=== PATIENT | female | born 1985 | race Caucasian/White ===

== ENCOUNTER 2019-09-26 10:17 | Emergency (ER) | payer OTHER, SELFPAY ==
--- NOTE | 2019-09-26 10:28 | ED.URI ---
HPI - URI/Sore Throat General Chief Complaint: Upper Respiratory Infection Stated Complaint: sore throat/fever History of Present Illness HPI Narrative: This is a 34-year-old female comes in complaining of body aches fever scratchy throat not feeling well states that symptoms started yesterday denies any nausea vomiting diarrhea no shortness of breath. Related Data Allergies Allergy/AdvReac Type Severity Reaction Status Date / Time No Known Allergies Allergy Unknown Unverified 11/22/16 17:15 Review of Systems Review of Systems: Narrative: CONSTITUTIONAL: Positive fever, chills, or sweats. EYES: Denies visual changes, redness, or discharge. ENT: positive rhinorrhea, congestion, sore throat, or otalgia. CARDIOVASCULAR:Denies chest pain, palpitations, or edema. RESPIRATORY: Positive cough or dyspnea. GASTROINTESTINAL: Denies abdominal pain, nausea, vomiting, or diarrhea. GENITOURINARY: Denies dysuria or hematuria. SKIN:Denies rash or itching. MUSCULOSKELETAL:Denies back pain, joint pain, or myalgia. NEUROLOGIC: Denies headache, numbness, or weakness. PSYCHIATRIC:Denies anxiety or depression PMFSH Comments At time as signature, I have reviewed and agree with nursing past medical, social, surgical and family history. Please see nursing chart for further information. There is no relevant family history pertinent to the presenting complaint. Exam Narrative: Exam Narrative: GENERAL:Well-appearing, well-nourished, and in no acute distress. HEAD:Normocephalic, atraumatic. EYES: PERRLA and EOMI. ENT: Nares clear, no rhinorrhea or epistaxis. Mucous membranes moist. NECK: Supple. CHEST: Clear to auscultation. No respiratory distress. HEART: Regular rate and rhythm. No murmur heard. Normal peripheral pulses. ABDOMEN: Soft, nontender, nondistended, normal active bowel sounds. EXTREMITIES: Normal range of motion. No edema. SKIN: Warm, dry, no rash. NEURO: No focal deficits. Alert and oriented x3. Positive for influenza b Discharge Plan Discharge Clinical Impression: Influenza Patient Disposition: Home, Self-Care Condition: Stable Instructions: Antibiotic Form, Influenza (ED) Prescriptions: New oseltamivir [Tamiflu] 75 mg capsule 75 mg PO Q12H 5 Days Qty: 10 RF: 0 ondansetron 4 mg tablet,disintegrating 4 mg PO Q8H PRN (Reason: nausea and vomiting) Qty: 10 RF: 0 Follow-up/Referrals: Juan F Mota MD [Primary Care Provider] - Stand Alone Forms: Work/School Release IP
[2019-09-26 10:35] VITALS: BP 110/86; PULSE 81; RESP 16; TEMP 37.3; O2SAT 97
--- NOTE | 2019-09-26 11:18 | ED.URI ---
HPI - URI/Sore Throat General Chief Complaint: Upper Respiratory Infection Stated Complaint: sore throat/fever History of Present Illness HPI Narrative: This is a 34-year-old female comes in complaining with a cough currently patient is on some Amoxil given to her by her PCP patient still is having cough worried about having influenza. Mild shortness of breath when she lies down and cough. Related Data Allergies Allergy/AdvReac Type Severity Reaction Status Date / Time No Known Allergies Allergy Unknown Unverified 11/22/16 17:15 Review of Systems Review of Systems: Narrative: CONSTITUTIONAL: Reports fever, chills, or sweats. EYES: Denies visual changes, redness, or discharge. ENT: Reports rhinorrhea, congestion, sore throat, or otalgia. CARDIOVASCULAR:Denies chest pain, palpitations, or edema. RESPIRATORY: Reports cough or dyspnea. GASTROINTESTINAL: Denies abdominal pain, nausea, vomiting, or diarrhea. GENITOURINARY: Denies dysuria or hematuria. SKIN:[Denies rash or itching. MUSCULOSKELETAL:Denies back pain, joint pain, or myalgia. NEUROLOGIC: Denies headache, numbness, or weakness. PSYCHIATRIC:Denies anxiety or depression PMFSH Comments Walk with at time as signature, I have reviewed and agree with nursing past medical, social, surgical and family history. Please see nursing chart for further information. There is no relevant family history pertinent to the presenting complaint. Exam Narrative: Exam Narrative: GENERAL:Well-appearing, well-nourished, and in no acute distress. HEAD:Normocephalic, atraumatic. EYES: PERRLA and EOMI. ENT: Nares clear, clear rhinorrhea or epistaxis. Mucous membranes moist. Pharyngeal erythema NECK: Supple. CHEST: Clear to auscultation. No respiratory distress. HEART: Regular rate and rhythm. No murmur heard. Normal peripheral pulses. ABDOMEN: Soft, nontender, nondistended, normal active bowel sounds. EXTREMITIES: Normal range of motion. No edema. SKIN: Warm, dry, no rash. NEURO: No focal deficits. Alert and oriented x3. Course Vital Signs Vital signs: Vital Signs Temperature 99.1 F 09/26/19 10:35 Pulse Rate 81 09/26/19 10:35 Respiratory Rate 16 09/26/19 10:35 Blood Pressure 110/86 09/26/19 10:35 Pulse Oximetry 97 03/05/20 10:35 Temperature 99.1 F 09/26/19 10:35 Pulse Rate 81 09/26/19 10:35 Respiratory Rate 16 09/26/19 10:35 Blood Pressure 110/86 09/26/19 10:35 Pulse Oximetry 97 09/26/19 10:35 MDM - URI/Sore Throat Lab Data Labs: Influenza A Screen Negative Reference Range: Negative Influenza B Screen Negative Reference Range: Negative Strep Screen Presumptive Negative *(Reference Range: Negative)* Discharge Plan Discharge Clinical Impression: Influenza Patient Disposition: Home, Self-Care Condition: Stable Instructions: Antibiotic Form, Influenza (ED) Prescriptions: New oseltamivir [Tamiflu] 75 mg capsule 75 mg PO Q12H 5 Days Qty: 10 RF: 0 ondansetron 4 mg tablet,disintegrating 4 mg PO Q8H PRN (Reason: nausea and vomiting) Qty: 10 RF: 0 Follow-up/Referrals: Juan F Mota MD [Primary Care Provider] - Stand Alone Forms: Work/School Release IP Discharge Date/Time: 09/26/19 11:32
== END 2019-09-26 11:32 | disposition home or self-care (01) ==
PROVIDERS: Emergency Provider Nurse Practitioner Family; PCP Emergency Medicine
DX: J11.1 Influenza due to unidentified influenza virus with other respiratory manifestations (principal)
CPT/HCPCS: 87081; 87804; 87880; 99213; G0463

== ENCOUNTER 2025-07-01 12:53 | Observation (INO) | payer OTHER, SELFPAY ==
--- NOTE | ~2025-07-01 | CT_ITS ---
EXAMINATION: CT abdomen pelvis w con DATE: 07/01/2025 16:55 INDICATION: Lower abdominal pain, nausea and constipation TECHNIQUE: Computed tomography (CT) of the abdomen and pelvis was performed with 100 mL Omnipaque-350 intravenous contrast. Automated exposure control and iterative reconstruction technique were employed. The dose-length product was 237.17 mGy-cm. COMPARISON: None FINDINGS: Lung bases are clear. Heart size is normal. No pericardial or pleural effusion. Focal hepatic steatosis along the ligamentum teres. Gallbladder, pancreas, bilateral adrenal glands and left kidney are normal. 1.1 cm right renal cyst. Splenic calcifications consistent with old granulomatous disease. Small amount of stool in the proximal colon. The mid to distal colon is relatively decompressed. High attenuation likely appendicoliths within the appendix which is fluid-filled and dilated distally measuring up to 12 mm in maximal diameter with periappendiceal inflammatory stranding consistent with acute appendicitis. Small bowel is normal caliber with no obstruction. Decompressed bladder and bilateral adnexa are unremarkable. T-shaped IUD in expected position within the anteverted uterus. No free intraperitoneal gas or fluid. No pathologically enlarged abdominal or pelvic lymphadenopathy. Mild lumbar levocurvature. IMPRESSION: 1. Acute appendicitis. Dr. Lamb discussed these findings with Dr. Garza at 5:07 PM. Reviewed, dictated and finalized at location B. [employer] IMPRESSION: 1. Acute appendicitis. Dr. Lamb discussed these findings with Dr. El rowan at 5:07 PM.
[2025-07-01 13:18] VITALS: BP 146/109; PULSE 77; RESP 16; TEMP 36.9; O2SAT 99
--- NOTE | 2025-07-01 14:52 | ED_ITS ---
HPI - Abdominal Pain General Chief Complaint: Abdominal Pain <MORAIMA Little Last Filed: 07/01/25 17:09> Stated Complaint: abdominal pain, Nausea <MORAIMA Little Last Filed: 07/01/25 17:09> Time Seen by Provider: 07/01/25 14:52 <MORAIMA Little Last Filed: 07/01/25 17:09> Focused HPI: Patient is a 40 y/o female who presents to the ED with c/o ABD pain. Patient reports having diffuse mid/lower abdomen pain, described as a cramping, consistently since last night. Reports nausea, dizziness, constipation. States her BMs have been very small. Last passed a small amount of stool this am. Denies fevers. Denies bad food exposure, sick contacts, family members with similar sx's. GENERAL: Uncomfortable-appearing, well-nourished, and in no acute distress. HEAD: Normocephalic, atraumatic. CHEST: Clear to auscultation. ?No respiratory distress. HEART: Regular rate and rhythm.? ABD: TTP in mid lower and LLQ abd. Normoactive BS NEURO: ?Alert and oriented x3. Patient screened in triage and initial orders placed.? ?Additional care and disposition to be based upon?diagnostic testing and treatment. <MORAIMA Little Last Filed: 07/01/25 17:09> Source: patient <MORAIMA Little Last Filed: 07/01/25 17:09> Mode of arrival: ambulatory <MORAIMA Little Last Filed: 07/01/25 17:09> Limitations: no limitations <MORAIMA Little Last Filed: 07/01/25 17:09> Related Data Allergies/Adverse Reactions: Allergies Allergy/AdvReac Type Severity Reaction Status Date / Time No Known Allergies Allergy Unknown Verified 07/01/25 15:59 <MORAIMA Little Last Filed: 07/01/25 17:09> Review of Systems 2 Review of Systems: All systems reviewed & are unremarkable except as noted in HPI and below <Gavin Ho MD - Last Filed: 07/01/25 17:35> Exam 2 Narrative: EXAMINATION OF ORGAN SYSTEMS/BODY AREAS: Constitutional: Vital signs per nursing GENERAL:No acute distress, non-toxic appearing. HEAD: Normal with no signs of head trauma. EYES: EOMI, conjunctiva normal ENT: Hearing grossly intact LUNGS: Nonlabored breathing. HEART: Regular rate and rhythm ABD: Soft, the abdomen is diffusely tender without any rebound or guarding. No overlying skin changes normal bowel sounds. EXT: Normal range of motion SKIN: No rashes or lesions. NEURO: Alert. No gross focal sensory or strength deficits. PSYCH: Normal affect <Gavin Ho MD - Last Filed: 07/01/25 17:35> Course Vital Signs Vital signs: Vital Signs Temperature 36.9 C 07/01/25 13:18 Pulse Rate 77 07/01/25 13:18 Respiratory Rate 16 07/01/25 13:18 Blood Pressure 146/109 H 07/01/25 13:18 Pulse Oximetry 99 07/01/25 13:18 Oxygen Delivery Room Air 07/01/25 13:18 Temperature 36.9 C 07/01/25 13:18 Pulse Rate 71 07/01/25 16:12 Respiratory Rate 18 07/01/25 16:12 Blood Pressure 138/98 H 07/01/25 16:12 Pulse Oximetry 99 07/01/25 16:12 Oxygen Delivery Room Air 07/01/25 13:18 <Shira Garza PA-C - Last Filed: 07/01/25 17:09> Vital Signs Temperature 36.9 C 07/01/25 13:18 Pulse Rate 77 07/01/25 13:18 Respiratory Rate 16 07/01/25 13:18 Blood Pressure 146/109 H 07/01/25 13:18 Pulse Oximetry 99 07/01/25 13:18 Oxygen Delivery Room Air 07/01/25 13:18 Temperature 36.9 C 07/01/25 13:18 Pulse Rate 71 07/01/25 16:12 Respiratory Rate 18 07/01/25 16:12 Blood Pressure 138/98 H 07/01/25 16:12 Pulse Oximetry 99 07/01/25 16:12 Oxygen Delivery Room Air 07/01/25 13:18 <Gavin Ho MD - Last Filed: 07/01/25 17:35> [facility] Narrative Medical decision making narrative: MSE by JUANITO in triage <Shira Garza PA-C - Last Filed: 07/01/25 17:09> Differential Diagnosis Differential Diagnosis: Differential diagnosis is diverticulitis versus early appendicitis versus colitis versus viral gastroenteritis versus less likely an obstructive process. Will obtain IV access basic labs CT abdomen pelvis IV contrast and multimodal pain control implant for evaluation of a recurrent treatment. Results and re-evaluation Patient found have acute appendicitis. I did spoke with Dr. Parker general surgery who will accept the admission. I have started the patient on empiric antibiotics made NPO p.r.n. pain medications updated the patient all questions answered otherwise admitted the hospital in fair condition. <Gavin Ho MD - Last Filed: 07/01/25 17:35> Lab Data [facility] Lab Attestation statement: I personally reviewed the patient's lab results. <Gavin Ho MD - Last Filed: 07/01/25 17:35> Result diagrams: 07/01/25 16:14 07/01/25 16:14 <Shira Garza PA-C - Last Filed: 07/01/25 17:09> Labs: Lab Results 07/01/25 07/01/25 07/01/25 Range/Units 16:14 16:24 16:26 WBC 15.1 H (4.5-10.0) K/mm3 RBC 4.76 (4.2-5.4) M/mm3 Hgb 15.0 (12.0-15.0) g/dL Hct 42.5 (37.0-47.0) % MCV 89.3 (80-100) fl MCH 31.5 (26-34) pg MCHC 35.3 (32-36) g/dl RDW 12.2 (11.5-14.5) % Plt Count 261 (150-375) k/mm3 MPV 9.5 (7.4-10.4) fl Immature Gran % (Auto) 0.3 (0-0.5) % Neut % (Auto) 85.3 H (45.5-73.1) % Lymph % (Auto) 9.9 L (18.3-44.2) % [place] % (Auto) 4.3 (2.6-8.5) % Eos % (Auto) 0.0 (0-4.4) % Baso % (Auto) 0.2 (0.2-1.2) % Lymph # (Auto) 1.49 (0.9-3.2) K/mm3 [place] # (Auto) 0.7 H (0.1-0.6) K/mm3 Eos # (Auto) 0.0 (0-0.3) K/mm3 Baso # (Auto) 0.0 (0.0-0.1) K/mm3 Abs Immat Gran (auto) 0.05 H (0.00-0.031) K/mm3 Absolute Neuts (auto) 12.9 H (1.3-6.7) K/mm3 Absolute Nucleated RBC 0.000 (0.0-0.012) K/mm3 Nucleated RBC % 0.0 (0.0-0.2) % Sodium 138 (137-145) mmol/L Potassium 3.5 (3.4-5.0) mmol/L Chloride 106 (98-107) mmol/L Carbon Dioxide 24 (22-30) mmol/L Anion Gap 8 (4-12) mmol/L BUN 8 (7-17) mg/dL Creatinine 0.70 (0.7-1.0) mg/dL Estim Creat Clear Calc 78 ml/min Estimated GFR > 60 (59 - ) Glucose 100 (65-110) mg/dL Calcium 9.5 (8.4-10.2) mg/dL Total Bilirubin 1.3 (0.2-1.3) mg/dL AST 25 (14-36) U/L ALT 12 (6-35) U/L Alkaline Phosphatase 93 (38-126) U/L Total Protein 7.7 (6.3-8.2) g/dL Albumin 4.5 (3.5-5.1) g/dL Lipase 73 (23-300) U/L Urine Color Yellow (Yellow) Urine Appearance Clear (Clear) Urine pH 6.0 (5.0-9.0) Ur Specific [place] 1.033 (1.001-1.035) Urine Protein 2+ H (Negative) mg/dL Urine Glucose (UA) Negative (Negative) mg/dL Urine Ketones 3+ H (Negative) mg/dL Ur Blood (Man) Negative (Negative) Urine Nitrate Negative (Negative) Urine Bilirubin Negative (Negative) Urine Urobilinogen 1.0 (<2.0) mg/dL Leukocyte Esterase Rfl Negative (Negative) KALYN/UL Urine RBC 0-2 (0-2) /hpf Urine WBC 0-5 (0-3) /hpf Ur Squamous Epith Cells Occasional (Few) /hpf Urine Bacteria 1+ H /hpf Urine Casts 0-2 POC Urine HCG, Qual Negative (Negative) <Shira Garza PA-C - Last Filed: 07/01/25 17:09> Lab Results 07/01/25 07/01/25 07/01/25 Range/Units 16:14 16:24 16:26 WBC 15.1 H (4.5-10.0) K/mm3 RBC 4.76 (4.2-5.4) M/mm3 Hgb 15.0 (12.0-15.0) g/dL Hct 42.5 (37.0-47.0) % MCV 89.3 (80-100) fl MCH 31.5 (26-34) pg MCHC 35.3 (32-36) g/dl RDW 12.2 (11.5-14.5) % Plt Count 261 (150-375) k/mm3 MPV 9.5 (7.4-10.4) fl Immature Gran % (Auto) 0.3 (0-0.5) % Neut % (Auto) 85.3 H (45.5-73.1) % Lymph % (Auto) 9.9 L (18.3-44.2) % [place] % (Auto) 4.3 (2.6-8.5) % Eos % (Auto) 0.0 (0-4.4) % Baso % (Auto) 0.2 (0.2-1.2) % Lymph # (Auto) 1.49 (0.9-3.2) K/mm3 [place] # (Auto) 0.7 H (0.1-0.6) K/mm3 Eos # (Auto) 0.0 (0-0.3) K/mm3 Baso # (Auto) 0.0 (0.0-0.1) K/mm3 Abs Immat Gran (auto) 0.05 H (0.00-0.031) K/mm3 Absolute Neuts (auto) 12.9 H (1.3-6.7) K/mm3 Absolute Nucleated RBC 0.000 (0.0-0.012) K/mm3 Nucleated RBC % 0.0 (0.0-0.2) % Sodium 138 (137-145) mmol/L Potassium 3.5 (3.4-5.0) mmol/L Chloride 106 (98-107) mmol/L Carbon Dioxide 24 (22-30) mmol/L Anion Gap 8 (4-12) mmol/L BUN 8 (7-17) mg/dL Creatinine 0.70 (0.7-1.0) mg/dL Estim Creat Clear Calc 78 ml/min Estimated GFR > 60 (59 - ) Glucose 100 (65-110) mg/dL Calcium 9.5 (8.4-10.2) mg/dL Total Bilirubin 1.3 (0.2-1.3) mg/dL AST 25 (14-36) U/L ALT 12 (6-35) U/L Alkaline Phosphatase 93 (38-126) U/L Total Protein 7.7 (6.3-8.2) g/dL Albumin 4.5 (3.5-5.1) g/dL Lipase 73 (23-300) U/L Urine Color Yellow (Yellow) Urine Appearance Clear (Clear) Urine pH 6.0 (5.0-9.0) Ur Specific [place] 1.033 (1.001-1.035) Urine Protein 2+ H (Negative) mg/dL Urine Glucose (UA) Negative (Negative) mg/dL Urine Ketones 3+ H (Negative) mg/dL Ur Blood (Man) Negative (Negative) Urine Nitrate Negative (Negative) Urine Bilirubin Negative (Negative) Urine Urobilinogen 1.0 (<2.0) mg/dL Leukocyte Esterase Rfl Negative (Negative) KALYN/UL Urine RBC 0-2 (0-2) /hpf Urine WBC 0-5 (0-3) /hpf Ur Squamous Epith Cells Occasional (Few) /hpf Urine Bacteria 1+ H /hpf Urine Casts 0-2 POC Urine HCG, Qual Negative (Negative) <Gavin Ho MD - Last Filed: 07/01/25 17:35> Imaging Data Attestation: I personally reviewed and interpreted this imaging study as follows: < Gavin Ho MD - Last Filed: 07/01/25 17:35> My impression: Acute uncomplicated appendicitis per <Gavin Ho MD - Last Filed: 07/01/25 17:35> Radiologist's impression: ITS Impressions Abdomen/Pelvis CT 07/01/25 17:03 IMPRESSION: 1. Acute appendicitis. Dr. Lamb discussed these findings with Dr. Garza at 5:07 PM. <Shira Garza PA-C - Last Filed: 07/01/25 17:09> ITS Impressions Abdomen/Pelvis CT 07/01/25 17:03 IMPRESSION: 1. Acute appendicitis. Dr. Lamb discussed these findings with Dr. Garza at 5:07 PM. <Gavin Ho MD - Last Filed: 07/01/25 17:35> Discharge Plan Discharge Clinical Impression: Appendicitis <Shira Garza PA-C - Last Filed: 07/01/25 17:09> Patient Disposition: Still a Patient <Shira Garza PA-C - Last Filed: 07/01/25 17:09> Condition: Stable <Shira Garza PA-C - Last Filed: 07/01/25 17:09> Instructions: Antibiotic Form <MORAIMA Little Last Filed: 07/01/25 17:09> Patient Language: Pashto <Shira Garza PA-C - Last Filed: 07/01/25 17:09> Prescriptions: No Action oseltamivir [Tamiflu] 75 mg capsule 75 mg PO Q12H 5 Days Qty: 10 0RF ondansetron 4 mg tablet,disintegrating 4 mg PO Q8H PRN (Reason: nausea and vomiting) Qty: 10 0RF <Shira Garza PA-C - Last Filed: 07/01/25 17:09> Follow-up/Referrals: Octavio,Ayaz Campbell MD [Primary Care Provider] <Shira Graza PA-C - Last Filed: 07/01/25 17:09> Time of Disposition: 17:24 <Shira Garza PA-C - Last Filed: 07/01/25 17:09> 17:24 <Gavin Ho MD - Last Filed: 07/01/25 17:35>
[2025-07-01] MEDS: ONDANSETRON INJ 4 MG/2 ML VIAL IV PUSH ×2 (16:10→18:17)
[2025-07-01 16:12] VITALS: BP 138/98; PULSE 71; RESP 18; O2SAT 99
[2025-07-01 16:20] LABS: Hematocrit 42.5 % (37.0-47.0); Hemoglobin 15.0 g/dL (12.0-15.0); Immature Granulocyte Percent A 0.3 % (0-0.5); Lymphocytes Absolute Auto 1.49 K/mm3 (0.9-3.2); Mean Corpuscular HGB Conc 35.3 g/dl (32-36); Mean Corpuscular Hemoglobin 31.5 pg (26-34); Mean Corpuscular Volume 89.3 fl (80-100); Nucleated Red Blood Cells Absolute Auto 0.000 K/mm3 (0.0-0.012); Nucleated Red Blood Cells Perc 0.0 % (0.0-0.2); Platelet Count Result 261 k/mm3 (150-375); Red Blood Count 4.76 M/mm3 (4.2-5.4); White Blood Count 15.1 K/mm3 (4.5-10.0)
[2025-07-01 16:29] LABS: BEDSIDEPREGUCG Negative (Negative)
[2025-07-01 16:32] LABS: Alanine Aminotransferase 12 U/L (6-35); Albumin Level 4.5 g/dL (3.5-5.1); Alkaline Phosphatase 93 U/L (38-126); Anion Gap 8 mmol/L (4-12); Aspartate Amino Transferase 25 U/L (14-36); Bilirubin,Total 1.3 mg/dL (0.2-1.3); Blood Urea Nitrogen 8 mg/dL (7-17); Calcium 9.5 mg/dL (8.4-10.2); Carbon Dioxide 24 mmol/L (22-30); Chloride 106 mmol/L (98-107); Estimated CRCL calculation 78 ml/min; Estimated Glomerular Filt Rate > 60; Glucose 100 mg/dL (65-110); Lipase 73 U/L (23-300); Potassium 3.5 mmol/L (3.4-5.0); Sodium 138 mmol/L (137-145); Total Protein 7.7 g/dL (6.3-8.2)
[2025-07-01] MEDS: SODIUM CHLORIDE 0.9% IV 1,000 ML 999 ML IV CONT (16:34)
[2025-07-01] MEDS: KETOROLAC 30 MG/ML VIAL (*BKC) IV PUSH (16:35)
[2025-07-01] MEDS: HYDROmorphone HCL INJ (*CRX) 1 MG/ML SYR 0.5 MG IV PUSH ×5 (16:35→23:50)
[2025-07-01 16:39] LABS: Add Urine Microscopic? YES; Appearance Urine Clear (Clear); Glucose Urine UA Negative (Negative); Leukocyte Esterase Ur Negative LEU/UL (Negative); Nitrate Urine Negative (Negative); Non Pathogenic Casts 0-2; Specific Grav Ur 1.033 (1.001-1.035)
[2025-07-01 18:01] VITALS: BP 128/84; PULSE 72; RESP 18; O2SAT 98
[2025-07-01] MEDS: SODIUM CHLORIDE 0.9% IV 1,000 ML 150 ML IV CONT (18:11)
[2025-07-01] MEDS: cefTRIAXone 1 GM in SODIUM CHLORIDE 0.9% IV 50 ML 100 ML IVPB (18:12)
[2025-07-01] MEDS: metroNIDAZOLE 500 MG/ISO 100ML 500 MG/100 ML BAG 100 MG IVPB (19:28)
[2025-07-01 19:33] VITALS: BP 146/82; PULSE 91; RESP 18; O2SAT 100
[2025-07-01 20:38] VITALS: BP 135/90; PULSE 84; RESP 19; TEMP 37.1; O2SAT 98; BMI 27.2
[2025-07-01 21:27] VITALS: BP 126/89; PULSE 90; RESP 16; TEMP 36.9; O2SAT 97
--- NOTE | 2025-07-01 23:27 | ADMGEN ---
This patient, Ivy Kan, was admitted to 3 Med Surg Room 304-01. Patient/family oriented to hospital policies and general routines including ID bracelet, bed and alarms, visiting hours, pain management, procedures, bathroom and other care routines, personal items, smoking policy, room service/diet, and visiting hours. Information on how to activate the Rapid Response Team has been discussed. Patient/Family are encouraged to report perceived risks to care and to ask questions if they do not understand what they are told or what they should do.
[2025-07-02] VITALS (11 sets, daily range): BP systolic 115–146; BP diastolic 70–97; PULSE 94–111; RESP 16–20; TEMP 36.2–38.7; O2SAT 94–99
[2025-07-02] MEDS: HYDROmorphone HCL INJ (*CRX) 1 MG/ML SYR 0.5 MG IV PUSH ×7 (03:08→14:35)
[2025-07-02] MEDS: metroNIDAZOLE 500 MG/ISO 100ML 500 MG/100 ML BAG 100 MG IVPB ×3 (05:29→22:14)
--- NOTE | 2025-07-02 09:43 | PM.IMHP2 ---
H&P: HPI History of Present Illness Date/Time: 07/02/25 09:43 Chief Complaint: RLQ abdominal pain Narrative: This is a 40-year-old female with a history of migraines and depression, who presented to the ED with complaints of right lower quadrant abdominal pain. Her pain started 2 nights ago around 9:00 p.m.. She was unable to sleep due to the pain. Movement and bending aggravated her pain. There were no alleviating factors. She reports associated nausea and had 1 episode of vomiting in the ER. Denies any fever or chills. Due to her persistent pain, she came into the ED for evaluation. [place] [id number] with a left shift. CT scan of the abdomen and pelvis showed acute appendicitis with no abscess or evidence of perforation. She has been admitted and started on IV antibiotics. This morning she is complaining of a migraine, which is common for her when she is stressed. Her only surgical history is an abdominoplasty. Review of Systems Review of Systems: All systems reviewed & are unremarkable except as noted in HPI and below PMFSH Past Medical History Medical History Migraines Depression Surgical History Surgical History History of abdominoplasty Family History Family History Father Diabetes mellitus Grandparent Diabetes mellitus Cancer Other Diabetes mellitus Sibling Cancer Other Cancer Social History Social History Smoking status: Former smoker Alcohol intake: current Drinks per week: 1 Substance use: never Substance use type: does not use Lack of Transportation: No Lack of Food: Never True Current Housing: I Have Housing Concerned About Future Housing: No Difficulty Paying Gas/Electric Bills: No Difficulty Paying for Meds: No Currently Unemployed: No Education: Associate Degree Difficulty w/ Childcare or Family Care: No Spiritual care concerns: No Meds Home Medications and Allergies Home Medications ?Medication ?Instructions ?Recorded ?Confirmed ?Type magnesium 250 mg tablet 250 mg PO DAILY 07/01/25 07/01/25 History omega-3 fatty acids 500 mg PO DAILY 07/01/25 07/01/25 History tirzepatide (weight loss) 5 mg/0.5 5 mg subcut WEEKLY 07/01/25 07/01/25 History mL subcutaneous pen injector (Zepbound) venlafaxine 75 mg capsule,extended 75 mg PO DAILY 07/01/25 07/01/25 History release 24 hr Allergies Allergy/AdvReac Type Severity Reaction Status Date / Time No Known Allergies Allergy Unknown Verified 07/01/25 20:37 Vital Signs Vital Signs - 24 hr 07/01/25 13:18 07/01/25 16:12 07/01/25 18:01 Temperature 98.5 F Pulse Rate 77 71 72 Respiratory Rate 16 18 18 Blood Pressure 146/109 H 138/98 H 128/84 Pulse Oximetry 99 99 98 Oxygen Delivery Room Air 07/01/25 19:33 07/01/25 20:38 07/01/25 21:27 Temperature 98.7 F 98.5 F Pulse Rate 91 84 90 Respiratory Rate 18 19 16 Blood Pressure 146/82 H 135/90 126/89 Pulse Oximetry 100 98 97 Oxygen Delivery 07/02/25 05:44 Temperature 97.7 F Pulse Rate 100 Respiratory Rate 18 Blood Pressure 127/97 H Pulse Oximetry 96 Oxygen Delivery Exam Const: General: comfortable and no acute distress Nutritional Appearance: average body habitus Orientation/consciousness: patient oriented x3 HENMT: Head: normocephalic and atraumatic Ears: hearing grossly normal bilaterally Mouth: Yes moist mucous membranes Eyes: General: appearance normal, both eyes and all related structures Pupils: Equal, round and reactive pupils present Neck: Neck: normal visual inspection and full ROM Resp: Effort & Inspection: no respiratory distress Auscultation: clear to auscultation bilaterally Cardio: Rate: regular rate Rhythm: regular rhythm Peripheral pulses: Peripheral pulses 2+ throughout GI: Inspection: non-distended and striae GI Palp: Yes Soft to palpation, Yes Tenderness to palpation present (GI) (right-sided tenderness more focal in the RLQ), No Guarding due to palpation present (GI), Yes No hepatosplenomegaly present, No Hernia present and No Rebound tenderness present Percussion: Yes normal to percussion Auscultation: normal bowel sounds Rectal Exam: deferred Skin: General skin exam: normal color Neuro: General: moves all extremities and no focal motor deficits Speech: normal speech Motor exam (neuro): 5/5 motor strength present throughout Extrem: General: normal to inspection and no edema Psych: Mental Status: mental status grossly normal Attitude: cooperative Insight: Good insight present (Psych) Judgement: Good judgement present (Psych) Results Labs Labs: Short CBC 07/01/25 Range/Units 16:14 WBC 15.1 H (4.5-10.0) K/mm3 Hgb 15.0 (12.0-15.0) g/dL Hct 42.5 (37.0-47.0) % Plt Count 261 (150-375) k/mm3 BMP 07/01/25 16:14 Sodium 138 Potassium 3.5 Chloride 106 Carbon Dioxide 24 BUN 8 Creatinine 0.70 Glucose 100 Calcium 9.5 Liver Function 07/01/25 Range/Units 16:14 Total Bilirubin 1.3 (0.2-1.3) mg/dL AST 25 (14-36) U/L ALT 12 (6-35) U/L Alkaline Phosphatase 93 (38-126) U/L Albumin 4.5 (3.5-5.1) g/dL Urine 07/01/25 Range/Units 16:24 Urine Color Yellow (Yellow) Urine Appearance Clear (Clear) Urine pH 6.0 (5.0-9.0) Ur Specific [place] 1.033 (1.001-1.035) Urine Protein 2+ H (Negative) mg/dL Urine Glucose (UA) Negative (Negative) mg/dL Imaging CT scan - abdomen: Radiologist's impression: ITS Impressions Abdomen/Pelvis CT 07/01/25 17:03 IMPRESSION: 1. Acute appendicitis. Dr. Lamb discussed these findings with Dr. Garza at 5:07 PM. Assessment and Plan Assessment and plan (1) Appendicitis: Code(s): K37 - Unspecified appendicitis Status: Acute Assessment and Plan: CT scan reviewed and discussed with the patient. There is evidence of acute appendicitis. No perforation or abscess evident on CT. We discussed both nonoperative treatment with IV antibiotics/monitoring versus proceeding with surgery. We discussed the details of a laparoscopic appendectomy, possible open, under general anesthesia that would be done by Dr. Parker. Description of the procedure, risks, benefits, alternatives, and expected recovery were discussed. She agrees to proceed with surgery. Will keep her NPO and continue IV antibiotics, IV fluids, and analgesics as needed pre-operatively. She has been added to the surgery schedule for today. Plan I have discussed the patient's case, recommendations, and treatment plan with Dr. Parker.
[2025-07-02] MEDS: LACTATED RINGERS 1,000 ML 125 ML IV CONT (09:54)
[2025-07-02] MEDS: LACTATED RINGERS 1,000 ML 30 ML IV CONT (14:35)
--- NOTE | 2025-07-02 14:59 | PC.NURSE ---
Off charles for surgery transfer per stretcher with pre-op staff, family to follow. medicated prior totransfer.
--- NOTE | 2025-07-02 15:24 | P.PNAN_ITS ---
Anes - Initial Pre Proc Eval Procedure: Operation Date: 07/02/25 16:00 Proposed Procedures p Laparoscopic Appendectomy - Ubaldo Parker DO Date/Time: 07/02/25 15:24 Surgeon: Ubaldo Parker DO Pre Op Diagnosis: appy Patient Data Age: 40 Gender: F Height: 1.55 m Weight: 65.4 kg Last Vital Signs Temp 38.7 C H 07/02/25 14:45 Pulse 111 H 07/02/25 14:45 Resp 16 07/02/25 14:45 BP 142/87 H 07/02/25 14:45 Pulse Ox 97 07/02/25 14:45 O2 Del Method Room Air 07/02/25 14:45 Allergies Allergy/AdvReac Type Severity Reaction Status Date / Time No Known Allergies Allergy Unknown Verified 07/01/25 20:37 Home Medications ?Medication ?Instructions ?Recorded ?Confirmed ?Type magnesium 250 mg tablet 250 mg PO DAILY 07/01/2504/17 History omega-3 fatty acids 500 mg PO DAILY 07/01/2504/17 History tirzepatide (weight loss) 5 mg/0.5 5 mg subcut WEEKLY 07/01/25 07/01/25 History mL subcutaneous pen injector (Zepbound) venlafaxine 75 mg capsule,extended 75 mg PO DAILY 04/1707/01/25 History release 24 hr Laboratory Tests 07/01/25 07/01/25 07/01/25 16:14 16:24 16:26 WBC 15.1 H K/mm3 (4.5-10.0) RBC 4.76 M/mm3 (4.2-5.4) Hgb 15.0 g/dL (12.0-15.0) Hct 42.5 % (37.0-47.0) MCV 89.3 fl (80-100) MCH 31.5 pg (26-34) MCHC 35.3 g/dl (32-36) RDW 12.2 % (11.5-14.5) Plt Count 261 k/mm3 (150-375) MPV 9.5 fl (7.4-10.4) Immature Gran % (Auto) 0.3 % (0-0.5) Neut % (Auto) 85.3 H % (45.5-73.1) Lymph % (Auto) 9.9 L % (18.3-44.2) [place] % (Auto) 4.3 % (2.6-8.5) Eos % (Auto) 0.0 % (0-4.4) Baso % (Auto) 0.2 % (0.2-1.2) Lymph # (Auto) 1.49 K/mm3 (0.9-3.2) [place] # (Auto) 0.7 H K/mm3 (0.1-0.6) Eos # (Auto) 0.0 K/mm3 (0-0.3) Baso # (Auto) 0.0 K/mm3 (0.0-0.1) Abs Immat Gran (auto) 0.05 H K/mm3 (0.00-0.031) Absolute Neuts (auto) 12.9 H K/mm3 (1.3-6.7) Absolute Nucleated RBC 0.000 K/mm3 (0.0-0.012) Nucleated RBC % 0.0 % (0.0-0.2) Sodium 138 mmol/L (137-145) Potassium 3.5 mmol/L (3.4-5.0) Chloride 106 mmol/L (98-107) Carbon Dioxide 24 mmol/L (22-30) Anion Gap 8 mmol/L (4-12) BUN 8 mg/dL (7-17) Creatinine 0.70 mg/dL (0.7-1.0) Estim Creat Clear Calc 78 ml/min Estimated GFR > 60 (59 - ) Glucose 100 mg/dL (65-110) Calcium 9.5 mg/dL (8.4-10.2) Total Bilirubin 1.3 mg/dL (0.2-1.3) AST 25 U/L (14-36) ALT 12 U/L (6-35) Alkaline Phosphatase 93 U/L (38-126) Total Protein 7.7 g/dL (6.3-8.2) Albumin 4.5 g/dL (3.5-5.1) Lipase 73 U/L (23-300) Urine Color Yellow (Yellow) Urine Appearance Clear (Clear) Urine pH 6.0 (5.0-9.0) Ur Specific [place] 1.033 (1.001-1.035) Urine Protein 2+ H mg/dL (Negative) Urine Glucose (UA) Negative mg/dL (Negative) Urine Ketones 3+ H mg/dL (Negative) Ur Blood (Man) Negative (Negative) Urine Nitrate Negative (Negative) Urine Bilirubin Negative (Negative) Urine Urobilinogen 1.0 mg/dL (<2.0) Leukocyte Esterase Rfl Negative KALYN/UL (Negative) Urine RBC 0-2 /hpf (0-2) Urine WBC 0-5 /hpf (0-3) Ur Squamous Epith Cells Occasional /hpf (Few) Urine Bacteria 1+ H /hpf Urine Casts 0-2 POC Urine HCG, Qual Negative (Negative) Patient hx anesthesia problems: none Family hx anesthesia problems: none Results Review: All pre-operative results and documents have been reviewed as part of the pre- operative evaluation. [facility] Past Medical History Medical History Migraines Depression Surgical History Surgical History History of abdominoplasty Family History Family History Father Diabetes mellitus Grandparent Diabetes mellitus Cancer Other Diabetes mellitus Sibling Cancer Other Cancer Social History Social History Smoking status: Former smoker Alcohol intake: current Drinks per week: 1 Substance use: never Substance use type: does not use Lack of Transportation: No Lack of Food: Never True Current Housing: I Have Housing Concerned About Future Housing: No Difficulty Paying Gas/Electric Bills: No Difficulty Paying for Meds: No Currently Unemployed: No Education: Associate Degree Difficulty w/ Childcare or Family Care: No Spiritual care concerns: No Anes - Eval Final PreProcedure Day of Procedure 07/02/25 15:24 Patient weight: overweight Heart: regular rate and rhythm Lungs: clear to auscultation Airway: Mallampati scale class II Neurological: alert and oriented Last oral intake: >/= 8 hours ASA classification: II Emergent: no Anesthetic plan: proceed Anesthesia type and monitoring: general ETT and standard monitoring Results Review: All pre-operative results and documents have been reviewed as part of the pre- operative evaluation. Informed Consent: The patient's anesthetic plan and its attendant risks and benefits were discussed with the patient/family/POA. Questions were solicited and answers provided to the satisfaction of the patient/family/POA.
[2025-07-02] MEDS: ACETAMINOPHEN 500 MG TABLET 1000 MG PO (15:30)
[2025-07-02] MEDS: KETOROLAC 15 MG/ML VIAL (*BKC) IV PUSH (15:30)
--- NOTE | 2025-07-02 15:59 | SUR.PREOP ---
6445 PT AND FAMILY UPDATED ABOUT DELAYED SURGERY TIME, REPORT GIVEN TO PAM LEAL RN. PT INTRODUCED TO PAM
--- NOTE | 2025-07-02 16:17 | WPDHPUPDATE1 ---
History and Physical Update Update Date/Time: 07/02/25 16:17 History and Physical has been reviewed, including an updated exam of the patient. There are NO changes in the patient's condition. Risks, benefits, and alternatives have been discussed and questions answered. Patient agrees to proceed with procedure.
--- NOTE | 2025-07-02 16:40 | S_PTH ---
PATIENT: Ivy Kan LOC: [id number] U#:[id number] AGE/SX: 40/F ROOM: 309 RE07/01/[address]: Angeles Vega PA-C : 1985 BED: 01 DIS: 07/03/2025 SPEC #: [id number] RECD: 07/03/25 09:21 STATUS: ELISEO EASLEY #: [id number] IZABEL: 07/02/25 16:[address]: Ubaldo Parker DEPT: [facility] Surgical RECD BY: Alma Rubi ENTERED: 07/03/25 09:22 SP TYPE: Surgical OTHR DR: Ayaz CunninghamMD Tissues: A - Appendix Procedures: Hematoxylin and Eosin Stain Gross and Microscopic Level 3
[2025-07-02] MEDS: BUPIVACAINE/EPINEPHRINE 0.5% 50 ML VIAL 30 ML INFILTRATE (16:43)
--- NOTE | 2025-07-02 17:01 | W.PM.PROC2 ---
Procedure Note - Detailed Date of Procedure 07/02/25 Pre-op Diagnosis Acute appendicitis Post-op Diagnosis Other ( acute perforated appendicitis) Procedure Performed Laparoscopic appendectomy Surgeon Ubaldo Parker, DO Anesthesia General and Local (0.5% bupivicaine with epinephrine) Indications this is a 40-year-old woman who presented to the emergency department last night with right lower quadrant pain that started the night before. Her pain progressed throughout the day. She also experienced some nausea and vomiting. In the emergency department she was notedTo have an elevated white blood count and CT showed evidence of acute appendicitis. She was started on broad-spectrum IV antibiotics and admitted for further treatment. Discussions were made with the patient about treatment options and decision was made to proceed with laparoscopic appendectomy, possible open. Findings Laparoscopic appendectomy was performed. The appendix appeared gangrenous and there was evidence of micro perforation. The base of the appendix appeared healthy and viable. There was some cloudy peritoneal fluid in the pelvis but no other sign of abscess. The appendix was removed and sent to the lab for pathology. Description of Procedure Procedure as well as risks, benefits, and alternatives were explained to the patient. The patient agreed to proceed. Written consent was obtained and placed in chart prior to procedure. The patient was brought back to surgical suite. She was placed supine on operating table. Time-out was done to confirm the patient and procedure. The patient was then intubated by the Anesthesia Department. Her abdomen was prepped and draped in sterile fashion using chlorhexidine prep. A 5 mm incision was made just to the left of the patient's umbilicus and a 5 mm Optiview trocar was advanced through the abdominal layers under direct visualization. Once inside the peritoneal cavity, carbon dioxide insufflation was used to create a pneumoperitoneum. The camera was inserted and the abdomen was inspected. No immediate abnormalities were identified. The patient was then placed in slight Trendelenburg position and rotated to the left. A 5 mm incision was made in the suprapubic region in midline and a 5 mm trocar was inserted under direct visualization. A 12 mm incision was made in the left lower quadrant and a 12 mm trocar was inserted under direct visualization. The right lower quadrant was carefully inspected. The cecum was identified and then this was traced back to the appendix. The appendix was identified and grasped at the mesoappendix and lifted anteriorly. Careful blunt dissection was carried out at the base of the appendix through the mesoappendix using a [place] grasper. An Endo-SOBEIDA 45 mm blue load stapler was then advanced across the base of the appendix and clamped and fired. A white reload was then clamped across the mesoappendix and fired. This freed up our appendix completely. It was then placed in an EndoCatch bag and removed through the left lower quadrant port. The staple lines were then inspected. Hemostasis appeared adequate and the staple lines appeared secure. The area was then irrigated with sterile saline. The pelvis was then carefully inspected and irrigated with sterile saline as well and the remainder of the abdomen was carefully inspected. The patient was then flattened out in bed. One final inspection was made around the abdominal cavity and no other abnormalities were seen. The left lower quadrant port was removed and a Kenroy-Trena cone was used to approximate the fascia with an 0 Vicryl simple interrupted suture. The remaining ports were then removed under direct visualization. The camera was removed and the pneumoperitoneum was released. 0.5% bupivacaine with epinephrine was infiltrated locally around each of the incisions. The skin of the incisions was then approximated using 4-0 Monocryl subcuticular suture and Exofin glue was applied on top. The patient was then awakened from anesthesia, extubated, and transferred to Recovery. Estimated Blood Loss 5 Urine Output 300 Pathology Yes (Appendix) Complications No immediate complications Condition Stable Disposition Floor [facility] Billing Surgery - Charge Forward: Surgery Billing
--- NOTE | 2025-07-02 17:11 | PC.NURSE ---
pt off floor in surgery
--- NOTE | 2025-07-02 18:29 | NBIDPHOTO ---
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 vss. spouse at bedside.
[2025-07-02] MEDS: cefTRIAXone 1 GM in SODIUM CHLORIDE 0.9% IV 50 ML 100 ML IVPB (20:16)
[2025-07-02] MEDS: HYDROcodone/acetaminophen (*CRX) 10-325 MG TABLET 1 TAB PO (20:17)
[2025-07-02] MEDS: ONDANSETRON INJ 4 MG/2 ML VIAL IV PUSH (20:17)
[2025-07-02] MEDS: LACTATED RINGERS 1,000 ML 100 ML IV CONT (20:57)
[2025-07-03 00:01] VITALS: BP 117/79; PULSE 70; RESP 16; TEMP 36.4; O2SAT 98
[2025-07-03] MEDS: ALPRAZolam (*CRX) 0.5 MG TABLET PO (00:03)
[2025-07-03 04:01] VITALS: BP 112/73; PULSE 70; RESP 16; TEMP 36.8; O2SAT 96
[2025-07-03] MEDS: metroNIDAZOLE 500 MG/ISO 100ML 500 MG/100 ML BAG 100 MG IVPB ×2 (05:34→13:32)
[2025-07-03 06:38] LABS: Hematocrit 36.8 % (37.0-47.0); Hemoglobin 12.5 g/dL (12.0-15.0); Mean Corpuscular HGB Conc 34.0 g/dl (32-36); Mean Corpuscular Hemoglobin 31.4 pg (26-34); Mean Corpuscular Volume 92.5 fl (80-100); Platelet Count Result 174 k/mm3 (150-375); Red Blood Count 3.98 M/mm3 (4.2-5.4); White Blood Count 14.2 K/mm3 (4.5-10.0)
[2025-07-03 07:02] LABS: Anion Gap 4 mmol/L (4-12); Blood Urea Nitrogen 8 mg/dL (7-17); Calcium 8.8 mg/dL (8.4-10.2); Carbon Dioxide 25 mmol/L (22-30); Chloride 107 mmol/L (98-107); Estimated CRCL calculation 77 ml/min; Estimated Glomerular Filt Rate > 60; Glucose 114 mg/dL (65-110); Potassium 3.5 mmol/L (3.4-5.0); Sodium 136 mmol/L (137-145)
[2025-07-03 07:50] VITALS: BP 116/83; PULSE 76; RESP 20; TEMP 36.8; O2SAT 101
[2025-07-03] MEDS: HYDROcodone/acetaminophen (*CRX) 10-325 MG TABLET 1 TAB PO ×2 (07:58→13:32)
[2025-07-03] MEDS: VENLAFAXINE HCL XR 75 MG CAP.ER.24H PO (07:59)
[2025-07-03 08:00] VITALS: PULSE 76; RESP 20; O2SAT 100
[2025-07-03 12:01] VITALS: BP 133/94; PULSE 82; RESP 20; TEMP 36.5; O2SAT 100
--- NOTE | 2025-07-03 13:13 | PM.DS ---
DS: Admitting Diagnosis Discharge Date 07/03/2025 Admitting Diagnosis acute appendicitis DS: Discharge Diagnosis Discharge Diagnosis (1) Appendicitis: Code(s): K37 - Unspecified appendicitis Status: Acute DS: Summary Hospital Course Reason for hospitalization: Patient presented to the hospital on 07/01/2025 with right lower quadrant pain that started 2 nights prior. Patient became febrile and had nausea and vomiting, prompting her to present to the emergency department. CT showed evidence of acute appendicitis. WBC elevated. Patient was admitted for laparoscopic appendectomy. Hospital Course: Patient underwent laparoscopic appendectomy with Dr. Saul on 07/02/25. the appendix appeared gangrenous and there was evidence of micro perforation. patient tolerated the procedure well and was transferred to recovery in good condition. Received ceftriaxone and Flagyl overnight. the following morning, white blood cell decreased slightly to 14.2. Afebrile overnight. Pain managed with oral [place]. Patient tolerating regular diet without any nausea or vomiting. Voiding appropriately. Ambulating independently. Minimal abdominal pain. Surgically stable for discharge. Time Spent with Patient Time attestation: Total time spent providing and/or coordinating discharge services: Exam Const: General: comfortable and no acute distress Eyes: General: appearance normal, both eyes and all related structures Neck: Neck: supple Resp: Effort & Inspection: normal respiratory effort Cardio: Rate: regular rate GI: Inspection: non-distended GI Palp: Yes Soft to palpation, Yes Tenderness to palpation present (GI) (minimal) and No Guarding due to palpation present (GI) Other: incisions clean and dry with glue intact. Skin: General skin exam: normal color and no rashes or lesions noted Extrem: General: normal to inspection Psych: Mental Status: mental status grossly normal DS: Data Data Completed and Pending Pending studies at discharge: Pending at discharge 07/02/25 16:40 Surgical [PTH] Routine Labs on day of discharge: Labs from last 24 hours 07/03/25 05:36 WBC 14.2 H RBC 3.98 L Hgb 12.5 Hct 36.8 L MCV 92.5 MCH 31.4 MCHC 34.0 RDW 12.5 Plt Count 174 MPV 9.7 Sodium 136 L Potassium 3.5 Chloride 107 Carbon Dioxide 25 Anion Gap 4 BUN 8 Creatinine 0.73 Estim Creat Clear Calc 77 Estimated GFR > 60 Glucose 114 H Calcium 8.8 Procedures/Treatments: Procedures Operation Date: 07/02/25 16:00 Actual Procedure Side Surgeon p Laparoscopic Appendectomy Not Applicable Ubaldo Saul DO Imaging Radiologist's impression: ITS Impressions Abdomen/Pelvis CT 07/01/25 17:03 IMPRESSION: 1. Acute appendicitis. Dr. Lamb discussed these findings with Dr. Garza at 5:07 PM. Discharge Plan Discharge Attending physician on discharge: Ubaldo Saul Discharging Clinician: Angeles Vega Patient Disposition: Home Activity: may shower Diet: regular Wound Care Instructions: follow printed instructions Discharge Instructions: DISCHARGE INSTRUCTION SHEET FOR HERNIA, GALLBLADDER AND APPENDIX SURGERIES DR. SAUL PATIENT TO TAKE HOME 1. May shower in 24 hours, no soaking in bath x 2weeks. 2. Call office for: Wound increasingly painful or bleeding Vomiting Fever of greater than 101 degrees 3. If no bowel movement for three days, take 1 oz. (30 ml) Milk of Magnesia or MiraLax 17g 1 to 2 times daily. 4. No heavy lifting > 10-15 pounds x 2 weeks for laparoscopic cholecystectomy or appendectomy. 5. No driving for 3 days or while taking narcotic pain medications. 6. Ice to surgical site for 48 hours (30 min on, then 30 min off). 7. Up walking 10-30 minutes three times per day. 8. Resume previous home medications. 9. Follow-up 10-14 days in office for wound check or as previously scheduled. ([phone]) 10. Oral pain medications prescription to be sent to pharmacy. Take Tylenol 500mg every 6 hours and Ibuprofen 600mg every 6 hours for the first 2 days, then as needed. 11. NUTRITION: Start out by drinking fluids and increase your diet as tolerated. If you experience nausea, try dry toast, crackers, and 7-UP. If nausea or vomiting persists, contact your surgeon?s office. Revised November 2018 Patient Instructions: Antibiotic Form Patient Language: [place] Stand Alone Forms: General Discharge Information Follow-up/Referrals: Ubaldo Saul DO [Physician, General Surgery] - Call for Appointment Referral Note: 2 weeks Discharge Medications: New hydrocodone-acetaminophen 5-325 mg Tablet 1 - 2 tablet PO Q4-6H PRN (Reason: Pain Rated 6-10) Qty: 15 0RF amoxicillin-pot clavulanate 875-125 mg tablet 1 tablet PO Q12H Qty: 14 0RF metronidazole 500 mg tablet 500 mg PO Q8H Qty: 21 0RF Continued venlafaxine 75 mg capsule,extended release 24hr 75 mg PO DAILY Zepbound 5 mg/0.5 mL pen injector 5 mg SUBCUT WEEKLY magnesium 250 mg tablet 250 mg PO DAILY omega-3 fatty acids Capsule 500 mg PO DAILY Date of admission: 07/01/25 17:31 Primary Care Provider: Octavio,Ayaz Campbell Admitting Provider: Ubaldo Saul Attending physician on admission: Ubaldo Saul Condition: Stable
== END 2025-07-03 14:40 | disposition home or self-care (01) ==
LOC: ANHED 17:35 → ANH3MEDSUR 19:16
PROVIDERS: Physician Assistant; Admitting Provider Surgery; Emergency Provider Emergency Medicine; PCP Internal Medicine
PROC: 0DTJ4ZZ Resection of Appendix, Percutaneous Endoscopic Approach (ICD-10-PCS; CPT 44970; principal; 2025-07-02 16:00)
DX: K35.32 Acute appendicitis with perforation, localized peritonitis, and gangrene, without abscess (principal); F32.A Depression, unspecified; Z79.85 Long-term (current) use of injectable non-insulin antidiabetic drugs; Z86.69 Personal history of other diseases of the nervous system and sense organs; Z87.891 Personal history of nicotine dependence; Z83.3 Family history of diabetes mellitus; Z80.9 Family history of malignant neoplasm, unspecified
CPT/HCPCS: 44970; 36415; 74177; 80048; 80053; 81001; 81025; 83690; 85025; 85027; 88304; 96361; 96365; 96374; 96375; 96376; 99285; A9270; G0378; J0696; J1171; J1200; J1836; J1885; J2003; J2250; J2405; J2704; J3010; J7030; J7120; Q9967